=== PATIENT | female | born 1940 | race Two or more races ===

== ENCOUNTER 2016-07-25 19:33 | Emergency (ER) | payer MEDICARE, OTHER ==
[~2016-07-25] VITALS: Ht 167.6 cm; Wt 77.1 kg
[~2016-07-25 19:33] MED LIST: ASPIR 8181 MG ORAL; BENAZEPRIL HCL40 MG ORAL; CALCIUM 500 +1 EAC3 PO; FOLIC ACID1 MG ORAL; LOTENSIN40 MG ORAL; NEXIUM20 M1 ORAL; NORVASC5 MG ORAL; PROZAC20 MG ORAL; SELENIUM200 MC3 PO
[2016-07-25] MEDS ORDERED: COQ-10100 M1 PO (19:54)
[2016-07-25] MEDS ORDERED: CRESTOR10 M2 ORAL (19:54)
[2016-07-25] MEDS ORDERED: SINGULAIR10 MG ORAL (19:54)
[2016-07-25] MEDS ORDERED: CITRUCEL479 GM PO (19:54)
[2016-07-25] MEDS ORDERED: LOTENSIN40 MG ORAL (19:54)
[2016-07-25] MEDS ORDERED: GLUCOSAMINE1000 M1 PO (19:54)
[2016-07-25] MEDS ORDERED: CULTURELLE1 EACH ORAL (19:54)
[2016-07-25] MEDS ORDERED: RANITIDINE HCL150 MG ORAL (19:54)
[2016-07-25] MEDS ORDERED: VITAMIN D250000 UNI1 ORAL (19:54)
[2016-07-25] MEDS ORDERED: SYMBICORT 16010.2 G1 IH (19:54)
[2016-07-25 20:11] VITALS: BP 146/73
[2016-07-25 20:33] LABS: BASOPHILS % (AUTO) 0.7 % (0.0-2.0); EOSINOPHILS % (AUTO) 0.4 % (0.0-3.0); LYMPHOCYTES % (AUTO) 14.2 % (20.0-45.0); MEAN CORPUSCULAR HEMOGLOBIN 30.6 PG (27.0-31.0); MEAN CORPUSCULAR HGB CONC 33.1 G/DL (32.0-36.0); MEAN CORPUSCULAR VOLUME 92 FL (80-99); MEAN PLATELET VOLUME 9.2 FL (6.5-10.1); MONOCYTES % (AUTO) 7.6 % (1.0-10.0); PLATELET COUNT 175 K/UL (150-450); RED BLOOD COUNT 4.24 M/UL (4.20-5.40); RED CELL DISTRIBUTION WIDTH 12.3 % (11.6-14.8); WHITE BLOOD COUNT 8.8 K/UL (4.8-10.8)
[2016-07-25 20:35] LABS: TROPONIN I < 0.30 ng/mL (<=0.30)
[2016-07-25 20:38] LABS: ALANINE AMINOTRANSFERASE 18 U/L (3-33); ALBUMIN/GLOBULIN RATIO 1.7 (1.0-2.7); ANION GAP 14 (5-15); ASPARTATE AMINO TRANSFERASE 21 U/L (5-40); CARBON DIOXIDE 26 mEQ/L (20-30); CHLORIDE 98 mEQ/L (98-107); CREATININE 1.3 mg/dL (0.5-0.9); HEMOLYSIS 9; POTASSIUM 4.1 mEQ/L (3.4-4.9); SODIUM 138 mEQ/L (135-145); TOTAL PROTEIN 6.5 g/dL (6.6-8.7)
[2016-07-25 20:38] LABS: APPEARANCE,URINE CLEAR; KETONES,URINE NEGATIVE (NEGATIVE); LEUKOCYTE ESTERASE ,URINE NEGATIVE (NEGATIVE); NITRITE,URINE NEGATIVE (NEGATIVE); PH,URINE 6 (4.5-8.0); PROTEIN,URINE NEGATIVE (NEGATIVE); UROBILINOGEN,URINE NORMAL MG/DL (0.0-1.0)
--- NOTE | 2016-07-25 20:38 | Emergency Room Report ---
History of Present Illness General Chief Complaint: Fever Source: Family Member Present Illness Allergies: Coded Allergies: No Known Allergies (Unverified , 07/01/14) Patient History Past Medical History: GERD, psych hx Past Surgical History: none Pertinent Family History: none Social History: Denies: alcohol use, drug use, smoking Now: No Immunizations: UTD Reviewed Nursing Documentation: PMH: Agreed, PSxH: Agreed Nursing Documentation-PMH Past Medical History: No History, Except For Hx Hypertension: Yes Hx Cancer: No Hx Gastrointestinal Problems: Yes - GERD History Of Psychiatric Problem: Yes - depression Hx Neurological Problems: No Review of Systems All Other Systems: negative except mentioned in HPI Physical Exam Vital Signs Date Time Temp Pulse Resp B/P Pulse Ox O2 Delivery O2 Flow Rate FiO2 07/25/16 19:46 99.1 101 9 146/73 97 Room Air Sp02 EP Interpretation: reviewed, normal General Appearance: no apparent distress, alert, GCS 15, non-toxic Head: normocephalic, atraumatic Eyes: bilateral eye PERRL, bilateral eye normal inspection ENT: hearing grossly normal, normal pharynx, no angioedema, normal voice Neck: full range of motion, supple/symm/no masses Respiratory: chest non-tender, lungs clear, normal breath sounds, speaking full sentences Cardiovascular #1: regular rate, rhythm, no edema Cardiovascular #2: 2+ carotid (R), 2+ carotid (L), 2+ radial (R), 2+ radial (L) , 2+ dorsalis pedis (R), 2+ dorsalis pedis (L) Gastrointestinal: normal bowel sounds, non tender, soft, non-distended, no guarding, no rebound Rectal: deferred Genitourinary: normal inspection, no CVA tenderness Musculoskeletal: back normal, gait/station normal, normal range of motion, non- tender Neurologic: alert, oriented x3, responsive, motor strength/tone normal, sensory intact, speech normal Psychiatric: judgement/insight normal, memory normal, mood/affect normal, no suicidal/homicidal ideation Reflexes: 3+ bicep (R), 3+ bicep (L), 3+ tricep (R), 3+ tricep (L), 3+ knee (R) , 3+ knee (L) Skin: normal color, no rash, warm/dry, well hydrated Lymphatic: no adenopathy Medical Decision Making Diagnostic Impression: Primary Impression: Atypical pneumonia ER Course Hospital Course 76-year-old female presents to ED complaining of bodyaches, cough, fever Differential diagnoses include: URI, bronchitis, asthma/COPD, pneumonia, influenza Clinical course Patient placed on stretcher. After initial history, physical exam reveals an elderly female in no acute distress. Bilateral TM unremarkable. No pharyngeal erythema. No tonsillar exudates. No lymphadenopathy. lungs clear. I ordered labs, IV fluids, flu swab, chest x-ray. Labs reviewed-no leukocytosis noted, hemoglobin/hematocrit stable, electrolytes okay, flu swab negative, UA negative Chest x-ray shows no infiltrate On reassessment patient states he feels better. Per curb-65 criteria, patient does not require admission. Patient can be safely discharged to home with outpatient therapy. discussed case with Dr Perkins and his mother. both agree to plan. will treat as atypical pneumonia Diagnosis -atypical pneumonia Stable and discharged home with prescriptions for z-pack, cough syrup. Instructed to followup with PMD. Return to ED if symptoms recur or worsen Labs Test 07/25/16 19:56 07/25/16 20:20 07/25/16 20:53 White Blood Count 8.8 K/UL (4.8-10.8) Red Blood Count 4.24 M/UL (4.20-5.40) Hemoglobin 13.0 G/DL (12.0-16.0) Hematocrit 39.2 % (37.0-47.0) Mean Corpuscular Volume 92 FL (80-99) Mean Corpuscular Hemoglobin 30.6 PG (27.0-31.0) Mean Corpuscular Hemoglobin Concent 33.1 G/DL (32.0-36.0) Red Cell Distribution Width 12.3 % (11.6-14.8) Platelet Count 175 K/UL (150-450) Mean Platelet Volume 9.2 FL (6.5-10.1) Neutrophils (%) (Auto) 77.0 % (45.0-75.0) Lymphocytes (%) (Auto) 14.2 % (20.0-45.0) Monocytes (%) (Auto) 7.6 % (1.0-10.0) Eosinophils (%) (Auto) 0.4 % (0.0-3.0) Basophils (%) (Auto) 0.7 % (0.0-2.0) Sodium Level 138 mEQ/L (135-145) Potassium Level 4.1 mEQ/L (3.4-4.9) Chloride Level 98 mEQ/L (98-107) Carbon Dioxide Level 26 mEQ/L (20-30) Anion Gap 14 (5-15) Blood Urea Nitrogen 14 mg/dL (7-23) Creatinine 1.3 mg/dL (0.5-0.9) Estimat Glomerular Filtration Rate mL/min (>60) Glucose Level 200 mg/dL (74-106) Lactic Acid Level 2.40 mmol/L (0.66-2.22) Calcium Level 9.0 mg/dL (8.6-10.2) Total Bilirubin 0.2 mg/dL (0.0-1.2) Aspartate Amino Transf (AST/SGOT) 21 U/L (5-40) Alanine Aminotransferase (ALT/SGPT) 18 U/L (3-33) Alkaline Phosphatase 56 U/L (35-104) Troponin I < 0.30 ng/mL (<=0.30) Total Protein 6.5 g/dL (6.6-8.7) Albumin 4.1 g/dL (3.5-5.2) Globulin 2.4 g/dL Albumin/Globulin Ratio 1.7 (1.0-2.7) Urine Color Pale yellow Urine Appearance Clear Urine pH 6 (4.5-8.0) Urine Specific [facility] [place] 1.005 (1.005-1.035) Urine Protein Negative (NEGATIVE) Urine Glucose (UA) Negative (NEGATIVE) Urine Ketones Negative (NEGATIVE) Urine Occult Blood 2+ (NEGATIVE) Urine Nitrite Negative (NEGATIVE) Urine Bilirubin Negative (NEGATIVE) Urine Urobilinogen Normal MG/DL (0.0-1.0) Urine Leukocyte Esterase Negative (NEGATIVE) Urine RBC 0-2 /HPF (0 - 2) Urine WBC 0-2 /HPF (0 - 2) Urine Squamous Epithelial Cells None /LPF (NONE/OCC) Urine Bacteria None /HPF (NONE) Chest X-Ray Diagnostic Results EP Interpretation: Yes Findings: no consolidation, no effusion, no pneumothorax, no acute cardiopulmonary disease Number of Views: 1 Last Vital Signs Date Time Temp Pulse Resp B/P Pulse Ox O2 Delivery O2 Flow Rate FiO2 07/25/16 20:11 99.1 97 31 146/73 100 Room Air Status: improved Disposition: HOME, SELF-CARE Condition: Serious Scripts D-Methorphan Hb/Prometh Hcl* (PROMETHAZINE-DM SYRUP*) 118 Ml Syrup 5 ML ORAL Q6H Y for For Cough, #118 ML 0 Refills Prov: MARICEL ADRIAN M.D. 07/25/16 Azithromycin* (ZITHROMAX*) 250 Mg Tablet 250 MG ORAL DAILY, #6 TAB 0 Refills Take two tablets by mouth today, then take one tablet by mouth daily for four days Prov: MARICEL ADRIAN M.D. 07/25/16 Referrals: INES PERKINS (PCP) MARICEL ADRIAN M.D. Jul 25, 2016 20:38
[2016-07-25 20:42] LABS: REFLEX LACTIC ACID YES OR NO YES
[2016-07-25 20:47] LABS: RBC,URINE 0-2 /HPF (0 - 2)
[2016-07-25 20:48] LABS: WBC,URINE 0-2 /HPF (0 - 2)
[2016-07-25] MEDS ORDERED: AZITHROMYCIN250 MG ORAL (20:58)
[2016-07-25] MEDS ORDERED: PROMETHAZINE-D118 ML ORAL (20:58)
[2016-07-25 21:20] VITALS: BP 127/64
--- NOTE | 2016-07-26 11:06 | Diagnostic Imaging Report ---
Indication: Dyspnea Comparison: July 03, 2014 A single view chest radiograph was obtained. Findings: Cardiomediastinal appearance is within normal limits for age. Pulmonary vascularity is appropriate. The diaphragmatic contour is smooth and costophrenic angles are sharp. No pleural effusions are identified. The bones are unremarkable. Impression: No acute findings
== END 2016-07-25 21:20 | disposition home or self-care (01) ==
LOC: EMR 19:52
DX: J18.9 Pneumonia, unspecified organism (principal); K21.9 Gastro-esophageal reflux disease without esophagitis; I10 Essential (primary) hypertension; F32.9 Major depressive disorder, single episode, unspecified
CPT/HCPCS: 36415; 71010; 80053; 81003; 83605; 84484; 85025; 86710; 96360